=== PATIENT | female | born 1980 ===

== ENCOUNTER 2017-07-28 16:36 | Emergency (ER) | payer OTHER ==
[2017-07-28 16:36] VITALS: BMI 43.4
[2017-07-28 16:43] VITALS: BP 146/74; PULSE 93; RESP 16; TEMP 99.2; O2SAT 97
--- NOTE | 2017-07-28 18:02 | ED PDOC ---
HPI: Back Time Seen by Provider: 07/28/17 16:40 Chief Complaint (Nursing): Back Pain Chief Complaint (Provider): Back Pain History Per: Patient Additional Complaint(s): 36 yo female, no PMH, presents to ED with complaints of lower back radiating to rt flank area x 2 days, pain worse upon movement. Pt states she has been doing heavy lifting at work. Past Medical History Reviewed: Nursing Documentation, Vital Signs Vital Signs: Last Vital Signs Temp 99.2 F 07/28/17 16:40 Pulse 93 H 07/28/17 16:40 Resp 16 07/28/17 16:40 BP 146/74 07/28/17 16:40 Pulse Ox 97 07/28/17 16:40 - Medical History PMH: Back Problems Denies: Diabetes, HTN, Hypercholesterolemia, Hyperlipidemia, Chronic Kidney Disease - Surgical History Surgical History: (x 2) - Family History Family History: States: No Known Family Hx - Living Arrangements Living Arrangements: With Family - Social History Current smoker - smoking cessation education provided: No Alcohol: None Drugs: Denies - Home Medications Home Medications: Ambulatory Orders Medication Instructions Recorded oxyCODONE/Acetaminophen [Percocet 1 tab PO Q6 #10 tab 08/02/17 5/325 mg Tab] - Allergies Allergies/Adverse Reactions: Allergies Allergy/AdvReac Type Severity Reaction Status Date / Time tramadol Allergy SHORTNESS Verified 08/02/17 09:14 OF BREATH Review of Systems ROS Statement: Except As Marked, All Systems Reviewed And Found Negative Musculoskeletal: Positive for: Back Pain Physical Exam - Reviewed Nursing Documentation Reviewed: Yes Vital Signs Reviewed: Yes - Physical Exam Appears: Positive for: Well, Non-toxic, No Acute Distress Head Exam: Positive for: ATRAUMATIC, NORMAL INSPECTION, NORMOCEPHALIC Skin: Positive for: Normal Color, Warm, DRY Eye Exam: Positive for: EOMI, Normal appearance, PERRL ENT: Positive for: Normal ENT Inspection Neck: Positive for: Normal, Painless ROM Cardiovascular/Chest: Positive for: Regular Rate, Rhythm Respiratory: Positive for: CNT, Normal Breath Sounds Gastrointestinal/Abdominal: Positive for: Normal Exam, Bowel Sounds, Soft Back: Positive for: Normal Inspection. Negative for: Muscle Spasm Extremity: Positive for: Normal ROM Neurologic/Psych: Positive for: Alert, Oriented - Laboratory Results Result Diagrams: 07/28/17 18:15 07/28/17 18:15 - ECG O2 Sat by Pulse Oximetry: 97 Medical Decision Making Medical Decision Making: Medicated with Toradol Doing well on re-eval, no complaints. Ambulating with steady gait. Disposition - Clinical Impression Clinical Impression: Back strain, Flank pain - Patient ED Disposition Is Patient to be Admitted: No - Disposition Disposition: Routine/Home Disposition Time: 20:59 Condition: STABLE Instructions: Flank Pain (ED) Forms: [facility] ([place]), [facility] ED School/Work Excuse - POA Present On Arrival: None
[2017-07-28 18:24] LABS: BASO % 0.4 % (0.0-2.0); EOS # 0.1 K/uL (0.0-0.7); EOS % 0.8 % (0.0-4.0); HEMATOCRIT 39.6 % (34.0-47.0); LYMPH # 2.1 K/uL (1.0-4.3); LYMPH % 25.5 % (20.0-40.0); MEAN CELL VOLUME 92.2 fl (81.0-99.0); MEAN CORPUSCULAR HEMOGLOBIN 30.4 pg (27.0-31.0); MEAN CORPUSCULAR HGB CONC 32.9 g/dL (33.0-37.0); MEAN PLATELET VOLUME 9.1 fl (7.2-11.7); MONO # 0.7 K/uL (0.0-0.8); MONO % 8.9 % (0.0-10.0); NEUT # 5.2 K/uL (1.8-7.0); NEUT % 64.4 % (50.0-75.0); NRBC % 0.1 % (0.0-0.0); RED CELL DISTRIBUTION WIDTH 13.6 % (11.5-14.5); WHITE BLOOD COUNT 8.2 K/uL (4.8-10.8)
[2017-07-28 18:34] LABS: ALB/GLOB RATIO 1.2 (1.0-2.1); ALKALINE PHOSPHATASE 84 U/L (38-126); ALT/SGPT 33 U/L (9-52); AST/SGOT 25 U/L (14-36); BILIRUBIN,TOTAL 0.3 mg/dl (0.2-1.3); BLOOD UREA NITROGEN 11 mg/dl (7-17); CALCIUM 9.6 mg/dL (8.4-10.2); CARBON DIOXIDE 29 mmol/L (22-30); CHLORIDE 103 mmol/L (98-107); GFR AFRICAN-AMERICAN > 60; GLUCOSE,RANDOM 104 mg/dL (65-105); POTASSIUM 3.9 MMOL/L (3.6-5.0); SODIUM 142 mmol/l (132-148); TOTAL PROTEIN 7.6 G/DL (6.3-8.2)
== END 2017-07-28 20:43 | disposition home or self-care (01) ==
LOC: H.ER 16:36
DX: S39.012A Strain of muscle, fascia and tendon of lower back, initial encounter (principal)
CPT/HCPCS: 80053; 81025; 85025; 96374; 99282; J1885